=== PATIENT | male | born 1970 | race Two or more races ===

== ENCOUNTER 2018-07-24 22:48 | Emergency (ER) | payer OTHER ==
--- NOTE | 2018-07-24 23:50 | EDPHY ---
H & P Stated Complaint: UNABLE TO SLEEP,TIRED X 3 DAYS/FELL ONE MONTH AO - Personal History Current Tetanus Diphtheria and Acellular Pertussis (TDAP): No - Medical/Surgical History Hx Asthma: No Hx Chronic Respiratory Disease: No Hx Diabetes: No Hx Cardiac Disease: No Hx Renal Disease: No Hx Cirrhosis: No Hx Alcoholism: No Hx HIV/AIDS: No Hx Splenectomy or Spleen Trauma: No Other PMH: R EYE SX - Social History Smoking Status: Current every day smoker Time Seen by Provider: 07/24/18 23:05 HPI/ROS: Chief complaint: Persistent headaches History of present illness: This is a 48-year-old male who presents to the emergency department for persistent headaches. Patient states approximately a month ago he slipped and fell striking the back of his head against the ground. He did not lose consciousness. However since then he has had a persistent headache in the occipital region. He denies alleviating factors. He is not taking medications for the pain however. He denies other associated signs or symptoms including no fevers or cold symptoms, no neck or spine pain, no paresthesias, weakness or paralysis or bowel or bladder dysfunction. Review of systems: A 10 point review of systems was obtained and other than described above was negative (Ramirez Perez) - Physical Exam Exam: General Appearance: Alert, nontoxic. Eyes: Pupils equal and round no pallor or injection. ENT, Mouth: Mucous membranes moist. Respiratory: There are no retractions, lungs are clear to auscultation. Cardiovascular: Regular rate and rhythm. Gastrointestinal: Abdomen is soft and non tender, no masses, bowel sounds normal. Neurological: Alert and oriented x4. Cranial nerves 2-12 grossly intact. Strength and sensation intact and symmetrical. He is ambulating without difficulty. Skin: Warm and dry, no rashes. Musculoskeletal: Neck is supple non tender. Spine is nontender to palpation along its entire length. Extremities are symmetrical, full range of motion. Psychiatric: Patient is oriented X 3, there is no agitation. (Ramirez Perez) Constitutional: Initial Vital Signs Temperature (C) 36.3 C 07/24/18 22:52 Heart Rate 94 07/24/18 22:52 Respiratory Rate 16 07/24/18 22:52 Blood Pressure 122/76 H 07/24/18 22:52 O2 Sat (%) 95 07/24/18 22:52 O2 Delivery Mode Room Air Allergies/Adverse Reactions: No Known Allergies Allergy (Unverified 07/24/18 22:52) Home Medications: Medication Instructions Recorded NK [No Known Home Meds] 07/24/18 Medical Decision Making - Diagnostics Imaging: Discussed imaging studies w/ call center representative Radiologist - Diagnostics Imaging Results: Imaging Impressions Head CT 07/24/18 23:08 Impression: 1. No significant intracranial abnormality seen. 2. Moderate maxillary and ethmoid sinus disease. 3. Shrunken calcified left orbital globe. If symptoms worsen, additional imaging may be necessary. Findings discussed with GLORIA Mcgee at 23:49 hour, 07/24/2018. ED Course/Re-evaluation: Patient seen under the supervision of my secondary supervising physician Dr. Alena Carrion. Patient presents to the emergency department for persistent headaches after trauma one month ago. He is nontoxic. His physical exam is benign including a nonfocal neurologic exam. CT scan of head is negative. I believe this is likely muscular in nature. I have discussed home care including the use of ibuprofen. He is to follow up with a primary care doctor for recheck. Return precautions are given. The patient voiced understanding and agreement with plan. (Ramirez Perez) PHYSICIAN DOCUMENTATION: The patient was evaluated and managed by the Physician Investments Manager. My co- signature indicates that I have reviewed this chart and I agree with the findings and plan of care as documented. I am the secondary supervising physician. (Alena Carrion) Differential Diagnosis: Included but not limited remote intracranial bleed, bony fracture, tension headache, migraine headache (Ramirez Perez) Departure - Departure Disposition: Home, Routine, Self-Care Clinical Impression: Headache Qualifiers: Headache type: unspecified Headache chronicity pattern: chronic headache Intractability: not intractable Qualified Code(s): R51 - Headache Condition: Good Instructions: Acute Headache (ED) Additional Instructions: Follow-up with a primary care doctor for continued evaluation and care Use ibuprofen 600 mg 3 times a day for the next 2-3 days for pain control If symptoms worsen or new symptoms develop return to the emergency room for recheck Referrals: NONE *PRIMARY CARE P,. [Primary Care Provider] - As per Instructions [facility],. [Clinic] - As per Instructions
[2018-07-25 00:10] VITALS: BP 142/90
== END 2018-07-25 00:09 | disposition home or self-care (01) ==
DX: R51 Headache (principal)